=== PATIENT | female | born 1995 | race Caucasian/White ===

== ENCOUNTER → 2017-07-05 10:34 | Outpatient (CLI) | payer BC, SELFPAY ==
[2017-07-05 11:43] LABS: Hematocrit 32.6 % (37-47); Mean Corp Hgb Conc 33.7 g/gl (32-36); Mean Corpuscular Hgb 32.4 pg (27.0-32.0); Mean Corpuscular Volume 96.2 fL (81-99); Mean Platelet Vol. 10.4 fl (6.2-12.0); Platelet Count 192 K/mm3 (150-450); RBC Distribution Width SD 43.5 fl (35.1-43.9); Red Blood Count 3.39 M/mm3 (4.2-5.4); White Blood Count 10.5 K/mm3 (4.4-11.0)
[2017-07-05 11:47] LABS: Scan Indicated on CBC? Y/N NO
[2017-07-05 11:55] LABS: Glucose Challenge Gest 1H 50g 81 mg/dL (70-140)
[2017-07-05 13:28] LABS: ALB/GLOB Ratio 0.7 RATIO (0.9-2.4); AST(SGOT) 16 U/L (15-37); Alanine Aminotransfer ALT/SGPT 20 U/L (13-56); Albumin, Serum 2.9 g/dL (3.2-5.0); Alkaline Phosphatase 55 U/L (45-117); Anion Gap 6 (5-15); BUN 9 mg/dL (7-18); BUN/Creat Ratio 15.5 RATIO (10-20); Calcium,Total 8.4 mg/dL (8.5-10.1); Chloride 106 mmol/L (98-107); Creatinine, Serum 0.58 mg/dL (0.55-1.02); EST Glomerular Filtration Rate 138 mL/min (>60); Est Glom Filt Rate - Afr Amer 167 mL/min (>60); Globulin 3.9 g/dL (2.2-4.2); Potassium 3.4 mmol/L (3.5-5.1); Protein, Total 6.8 g/dL (6.4-8.2); Sodium Level 138 mmol/L (136-145); Uric Acid 2.7 mg/dL (2.6-6.0)
[2017-07-05 13:47] LABS: Protein, Urine (Random) 14.8 mg/dL (<11.9)
== END ==
PROVIDERS: Visit Provider Obstetrics & Gynecology
DX: Z34.83 Encounter for supervision of other normal pregnancy, third trimester (principal)
CPT/HCPCS: 80053; 82570; 82950; 84156; 84550; 85027

== ENCOUNTER → 2017-08-05 10:00 | Outpatient (CLI) | payer BC, SELFPAY ==
--- NOTE | 2017-08-05 10:00 | DT_ITS ---
This patient was seen during an EMR downtime August 05, 2017 - August 12, 2017. This patient may have a combination of paper and electronic documentation or all paper documentation. All documentation is viewable within the e-chart portion of [facility] for each patient visit.
[2017-08-11 02:43] LABS: ALB/GLOB Ratio 0.7 RATIO (0.9-2.4); AST(SGOT) 18 U/L (15-37); Alanine Aminotransfer ALT/SGPT 28 U/L (13-56); Alkaline Phosphatase 84 U/L (45-117); Anion Gap 9 (5-15); BUN 9 mg/dL (7-18); BUN/Creat Ratio 15.8 RATIO (10-20); Calcium,Total 8.3 mg/dL (8.5-10.1); Chloride 106 mmol/L (98-107); Creatinine, Serum 0.57 mg/dL (0.55-1.02); EST Glomerular Filtration Rate 142 mL/min (>60); Est Glom Filt Rate - Afr Amer 172 mL/min (>60); Globulin 4.2 g/dL (2.2-4.2); Glucose 77 mg/dL (74-106); Potassium 3.8 mmol/L (3.5-5.1); Protein, Total 7.2 g/dL (6.4-8.2); Sodium Level 138 mmol/L (136-145); Uric Acid 3.5 mg/dL (2.6-6.0)
[2017-08-11 02:44] LABS: Protein, Urine (Random) 16.9 mg/dL (<11.9)
[2017-08-11 02:52] LABS: Hematocrit 35.3 % (37-47); Hemoglobin 11.7 g/dl (12.0-15.0); Mean Corp Hgb Conc 33.1 g/gl (32-36); Mean Corpuscular Hgb 31.7 pg (27.0-32.0); Mean Corpuscular Volume 95.7 fL (81-99); Platelet Count 214 K/mm3 (150-450); RBC Distribution Width CV 12.5 % (11.6-14.6); RBC Distribution Width SD 42.2 fl (35.1-43.9); Red Blood Count 3.69 M/mm3 (4.2-5.4); White Blood Count 10.1 K/mm3 (4.4-11.0)
[2017-08-11 02:53] LABS: Scan Indicated on CBC? Y/N NO
== END ==
PROVIDERS: Visit Provider Obstetrics & Gynecology
DX: O13.3 Gestational [pregnancy-induced] hypertension without significant proteinuria, third trimester (principal); Z3A.00 Weeks of gestation of pregnancy not specified
CPT/HCPCS: 36415; 80053; 82570; 84156; 84550; 85027

== ENCOUNTER → 2017-08-22 11:41 | Outpatient (CLI) | payer BC, SELFPAY ==
[2017-08-22 12:44] LABS: Hemoglobin 11.1 g/dl (12.0-15.0); Mean Corp Hgb Conc 33.6 g/gl (32-36); Mean Corpuscular Hgb 31.5 pg (27.0-32.0); Mean Corpuscular Volume 93.8 fL (81-99); Mean Platelet Vol. 10.7 fl (6.2-12.0); Platelet Count 209 K/mm3 (150-450); RBC Distribution Width SD 39.9 fl (35.1-43.9); Red Blood Count 3.52 M/mm3 (4.2-5.4); White Blood Count 8.6 K/mm3 (4.4-11.0)
[2017-08-22 12:49] LABS: Scan Indicated on CBC? Y/N NO
[2017-08-22 13:10] LABS: ALB/GLOB Ratio 0.6 RATIO (0.9-2.4); AST(SGOT) 16 U/L (15-37); Alanine Aminotransfer ALT/SGPT 23 U/L (13-56); Albumin, Serum 2.7 g/dL (3.2-5.0); Alkaline Phosphatase 78 U/L (45-117); Anion Gap 8 (5-15); BUN 10 mg/dL (7-18); BUN/Creat Ratio 17.2 RATIO (10-20); Calcium,Total 8.4 mg/dL (8.5-10.1); Chloride 109 mmol/L (98-107); Creatinine, Serum 0.58 mg/dL (0.55-1.02); EST Glomerular Filtration Rate 137 mL/min (>60); Est Glom Filt Rate - Afr Amer 166 mL/min (>60); Globulin 4.3 g/dL (2.2-4.2); Glucose 86 mg/dL (74-106); Potassium 3.5 mmol/L (3.5-5.1); Protein, Urine (Random) 9.6 mg/dL (<11.9); Sodium Level 138 mmol/L (136-145); Uric Acid 3.4 mg/dL (2.6-6.0)
== END ==
PROVIDERS: Visit Provider Obstetrics & Gynecology
DX: O13.3 Gestational [pregnancy-induced] hypertension without significant proteinuria, third trimester (principal); Z3A.00 Weeks of gestation of pregnancy not specified
CPT/HCPCS: 36415; 80053; 82570; 84156; 84550; 85027

== ENCOUNTER → 2017-08-26 13:24 | Outpatient (CLI) | payer BC, SELFPAY ==
[2017-08-26 15:33] LABS: Group B Strep DNA By PCR Negative (Negative); Internal Control PASS; Probe Check PASS; Specimen Processing Control PASS
== END ==
PROVIDERS: Visit Provider Obstetrics & Gynecology
DX: Z36.85 Encounter for antenatal screening for Streptococcus B (principal)
CPT/HCPCS: 87081; 87653

== ENCOUNTER 2017-09-08 06:30 | Inpatient (IN) | payer BC, SELFPAY ==
[2017-09-08] VITALS (21 sets, daily range): BP systolic 99–154; BP diastolic 42–97; PULSE 79–129; RESP 11–20; TEMP 35.7–37.3; O2SAT 97–100; BMI 33.2
[2017-09-08] MEDS: 0.9% Saline Lock 10 ML Syringe IV ×4 (07:35→21:15)
[2017-09-08 07:52] LABS: Hematocrit 31.6 % (37-47); Hemoglobin 10.4 g/dl (12.0-15.0); Mean Corp Hgb Conc 32.9 g/gl (32-36); Mean Corpuscular Hgb 30.6 pg (27.0-32.0); Mean Corpuscular Volume 92.9 fL (81-99); Mean Platelet Vol. 10.5 fl (6.2-12.0); Platelet Count 202 K/mm3 (150-450); RBC Distribution Width CV 12.5 % (11.6-14.6); RBC Distribution Width SD 42.5 fl (35.1-43.9)
[2017-09-08 07:53] LABS: Scan Indicated on CBC? Y/N NO
[2017-09-08] MEDS: Lactated Ringers 1,000 ML 50 ML IV ×2 (09:13→11:15)
[2017-09-08] MEDS: Terbutaline 1 MG/ML Vial 0.25 MG SC (10:00)
--- NOTE | 2017-09-08 10:22 | PCM.OPRPT ---
Problem List (1) Breech presentation Status: Acute Qualifiers: Fetus number: single or unspecified fetus Qualified Code(s): O32.1XX0 - Maternal care for breech presentation, not applicable or unspecified (2) 37 weeks gestation of Status: Acute Report of Operation Date of Procedure: 09/08/17 Pre-Operative Diagnosis: 37 4/7wga, breech presentation, gestational HTN Surgery/Procedure Performed:: 37 4/7wga, breech presentation, gestational hypertension Description of Surgical Findings:: heart rate baseline 135 bpm US demonstrates - Fetus camilo breech with back maternal left, anterior placenta, SINCERE 13cm drugless doctor: Belinda Albert Special Medications: Terbutaline 0.25mg Specimen's removed: none Estimated Blood Loss (mL): 0 Description of Procedure: Procedure: External cephalic version. Reviewed with patient risks, benefits and alternatives and she desired to proceed. NST was obtained and Category I. SC Terbutaline was administered. US performed to verify lie and presentation. US was employed intermittently to verify presentation/lie and view the placenta. A backward roll was attempted, followed by two forward roll attempts without successful version. heart rate obtained intermittently remained within normal limits without decelerations and the placenta appeared normal on post procedural US. The patient declined a final attempt at backwards roll. The patient tolerated the procedure well. Will obtain NST and observer FHR for additional 60 min. - Complications none
--- NOTE | 2017-09-08 10:30 | OP.PCM_ITS ---
Problem List (1) Breech presentation Status: Acute Qualifiers: Fetus number: single or unspecified fetus Qualified Code(s): O32.1XX0 - Maternal care for breech presentation, not applicable or unspecified (2) 37 weeks gestation of Status: Acute Report of Operation Date of Procedure: 09/08/17 Pre-Operative Diagnosis: 37 4/7wga, breech presentation, gestational HTN Surgery/Procedure Performed:: 37 4/7wga, breech presentation, gestational hypertension Description of Surgical Findings:: heart rate baseline 135 bpm US demonstrates - Fetus camilo breech with back maternal left, anterior placenta , SINCERE 13cm veneer glue jointer feedback: Belinda Albert Special Medications: Terbutaline 0.25mg Specimen's removed: none Estimated Blood Loss (mL): 0 Description of Procedure: Procedure: External cephalic version. Reviewed with patient risks, benefits and alternatives and she desired to proceed. NST was obtained and Category I. SC Terbutaline was administered. US performed to verify lie and presentation. US was employed intermittently to verify presentation/lie and view the placenta. A backward roll was attempted, followed by two forward roll attempts without successful version. heart rate obtained intermittently remained within normal limits without decelerations and the placenta appeared normal on post procedural US. The patient declined a final attempt at backwards roll. The patient tolerated the procedure well. Will obtain NST and observer FHR for additional 60 min. - Complications none
--- NOTE | 2017-09-08 10:44 | HP.PCM_ITS ---
- Problem List (1) Breech presentation Status: Acute Qualifiers: Fetus number: single or unspecified fetus Qualified Code(s): O32.1XX0 - Maternal care for breech presentation, not applicable or unspecified (2) 37 weeks gestation of Status: Acute (3) Gestational hypertension Status: Acute History Date of Admission: 09/08/17 Final YOHAN: 09/25/17 Final YOHAN Source: US <20 weeks Gestational age: 37 Weeks and 4 Days History of this : This is a 21 year-old, G 1, P 0, at 37 weeks 4 days gestational age presented for scheduled induction of labor for gestational hypertension. Denies headache, vision changes, abdominal pain, contractions, leaking of fluid or vaginal bleeding. Fetus is active. Medical History: Medical History (Last Updated 09/08/17 @ 10:33 by Patricia Gray MD) Patient denies medical problems Z78.9 Allergies ibuprofen [From Motrin] Allergy (Verified 09/08/17 08:11) Rash Home Medications: Home Medications Vit No.130/Iron/FA [ Vitamins] 1 each PO DAILY 09/08/17 Smoking Status: Never smoker Alcohol: None Number of Fetus(es): 1 Heart Tracin, moderate variability, + accelerations, no decelerations TOCO Analysis: irritability with contractions 0-1/10 min History Past Pregnancies: Past Pregnancies Delivery Date Name GA/Weeks Outcome Route Weight Infant Gender Labor Length Anesthesia Delivery Location Provider FOB Labs: A positive, Ab negative GBS neg 1h GTT 81mg/dL RPR nr HIV nonreactive Hep C Ab negative Hep B S Ag negative Rubella nonimmune Utox negative TSH 0.35 uIU/mL PAP 02/12/17 - NILM GC/CT 02/12/17 - negative/negative Describe any other labor & delivery plans:: External cephalic version Number of Visits: 12 Review of Systems Constitutional: Denies: Anorexia Cardiovascular: Denies: Chest Pain, Edema Respiratory: Denies: Shortness of Breath Gastrointestinal: Denies: Abdominal Pain, Nausea, Vomiting Gynecological: Denies: Vaginal bleeding Neurological: Denies: Blurred vision, Double vision, Headaches Physical Exam Vitals: AVSS, BP 130s/80s General: Alert, Oriented x3, Cooperative, No apparent distress HEENT: Atraumatic, Normocephalic Cardiovascular: Regular rate, Regular Rhythm, Normal S1, Normal S2, No murmurs Lungs: Clear to auscultation, Normal air movement, No rhonchi, No wheeze, No rales Abdomen: Soft, Non Tender, Non-Distended, Gravid Extremities:: No edema, Normal pulses, No tenderness/swelling Neurological: Neuro grossly intact, - - Trace b/l DTRs, no clonus COMMERCIAL SHEET METAL FOREMAN: Normal external genitalia Estimated gestational size: Appropriate for gestational size Presentation: Breech Cervix Dilation (cm): 1 Station: -3 Effacement (%): 25 Assessment/Plan All Active Problems (Last Updated 09/08/17 @ 10:33 by Patricia Gray MD) Breech presentation (Acute) 37 weeks gestation of (Acute) Gestational hypertension (Acute) This is a 21 year-old, G 1, P 0, at 37 weeks 4 days gestational age. -Bedside US performed - fetus breech with SINCERE 13cm. IOL deferred. -Discussed with patient and findings and advised against vaginal delivery due to risk for head entrapment. Reviewed management options including ECV with review of risks including heart rate changes including distress, placental abruption, labor, rupture of members with potential subsequent cord prolapse, need for emergency section due to a number of theses complications. Discussed potential for failure and success rate. Reviewed section indications, risks including pain, bleeding, hemorrhage, infection, VTE, nerve injury, injury to bowel or bladder, need for repeat section versus potential for future vaginal delivery with increased risk for uterine rupture, placenta accreta in future . Reviewed anticipated hospitalization and post-operative course. -Patient and given opportunity to discuss options further and opted for ECV. See procedure note. -NPO in interim -LARC declined
[2017-09-08] MEDS: Sodium Citrate/Citric Acid 30 ML UDC PO (12:11)
[2017-09-08] MEDS: Cefazolin 2 GM in 0.9% Normal Saline 100 ML IV (12:24)
[2017-09-08] MEDS: Oxytocin 30 units/NS 500 ml 30 UNITS/500 ML IV.SOLN 167 UNITS IV (12:48)
--- NOTE | 2017-09-08 13:25 | PCM.IMED.CSR ---
- Problem List (1) Breech presentation Status: Acute Qualifiers: Fetus number: single or unspecified fetus Qualified Code(s): O32.1XX0 - Maternal care for breech presentation, not applicable or unspecified (2) 37 weeks gestation of Status: Acute (3) Gestational hypertension Status: Acute Qualifiers: Trimester: third trimester Qualified Code(s): O13.3 - Gestational [-induced] hypertension without significant proteinuria, third trimester [id number] PostOp Date of Procedure: 09/08/17 Primary Surgeon/Physician: Patricia Gray, instrument technician helper: Sascha Dailey Pre-op Diagnosis: Breech Post-Op Diagnosis: Breech Surgery/Procedure Performed: Primary low transverse Section Description of Surgical Findings:: Normal uterus, tubes and ovaries Estimated Blood Loss: 1000 mL Specimens Removed: placenta Drain: Diana to straight drain Type of Anesthesia: Spinal - Admit VTE Documentation VTE Present on Admission: No VTE Mechan Device Prophylaxis: SCD's VTE Pharm Prophylaxis ordered?: No
--- NOTE | 2017-09-08 13:28 | OP.PN_ITS ---
- Problem List (1) Breech presentation Status: Acute Qualifiers: Fetus number: single or unspecified fetus Qualified Code(s): O32.1XX0 - Maternal care for breech presentation, not applicable or unspecified (2) 37 weeks gestation of Status: Acute (3) Gestational hypertension Status: Acute Qualifiers: Trimester: third trimester Qualified Code(s): O13.3 - Gestational [ -induced] hypertension without significant proteinuria, third trimester [id number] PostOp Date of Procedure: 09/08/17 Primary Surgeon/Physician: Patricia Gray, director of outpatient services: Sascha Dailey Pre-op Diagnosis: Breech Post-Op Diagnosis: Breech Surgery/Procedure Performed: Primary low transverse Section Description of Surgical Findings:: Normal uterus, tubes and ovaries Estimated Blood Loss: 1000 mL Specimens Removed: placenta Drain: Diana to straight drain Type of Anesthesia: Spinal - Admit VTE Documentation VTE Present on Admission: No VTE Mechan Device Prophylaxis: SCD's VTE Pharm Prophylaxis ordered?: No
--- NOTE | 2017-09-08 13:34 | PCM.OB.CSR ---
- Problem List (1) Breech presentation Status: Acute Qualifiers: Fetus number: single or unspecified fetus Qualified Code(s): O32.1XX0 - Maternal care for breech presentation, not applicable or unspecified (2) 37 weeks gestation of Status: Acute (3) Gestational hypertension Status: Acute Qualifiers: Trimester: third trimester Qualified Code(s): O13.3 - Gestational [-induced] hypertension without significant proteinuria, third trimester Delivery Classification: Scheduled Final YOHAN: 09/25/17 Gestational age: 37 Weeks and 4 Days doctor who attended delivery (if requested by OB): Daron Julian Indications: 21-year-old 1 at 37-4/7 weeks gestational age with history of gestational hypertension presents for scheduled induction of labor, however was found to have breech presentation on arrival. She opted for attempted external cephalic version following counseling. Version attempt was unsuccessful. I advised section. Risks, benefits, indications and alternatives to section were reviewed at length. Patient desired to proceed. Indications for : Breech Description of Procedure: Normal uterus, tubes and ovaries Female , 3321 g IV fluids 700 mL Urine output 300 mL Procedure: The patient was taken to the operating room and spinal analgesia was administered. She is placed in a dorsal supine position with left lateral tilt. The perineum and abdomen were prepped and draped in sterile fashion. And the spinal was found to be adequate. A Pfannenstiel incision was made using a scalpel and brought down to incise the subcutaneous tissue and rectus fascia at the midline. Subcutaneous tissue was bluntly dissected off the fascia laterally. The fascial incision was dissected laterally and cephalad using curved Hoskins scissors. The superior leaflet of the rectus fascia was grasped using Elia clamps and bluntly dissected and sharply dissected from the underlying rectus muscle. In a similar fashion the inferior rectus fascia was dissected from the underlying muscle. The rectus muscles were bluntly at the midline. The peritoneum was identified and entered [sharply]. The bladder blade was placed into the abdomen and the vesicouterine peritoneal fold identified. The fold was incised and a bladder flap created. Bladder blade was then repositioned to the abdomen. A low transverse hysterotomy was made using the [Metzenbaum scissors] to level of the membranes. The hysterotomy was extended bluntly cephalad and caudad. The membranes were then ruptured revealing clear fluid. The breech was elevated and brought to the level of the hysterotomy. Gentle bidirectional rotation the infant legs and upper extremities delivered. The head was flexed and subsequently delivered revealing a female infant. The cord was doubly clamped and cut. The was passed to awaiting [nursery personnel and model and dye person]. The placenta was [expressed] from the uterus and appeared intact on inspection. The uterus was cleared of debris. The hysterotomy was then repaired using 0 Vicryl running lock suture. A second imbricating layer was also placed for additional hemostasis. The bladder blade was removed. The anterior cul-de-sac was cleared of debris. The peritoneum and rectus muscles were reapproximated using 2-0 Vicryl running suture. The rectus fascia was closed using 0 Vicryl running suture. The subcutaneous tissue was reapproximated using 2-0 Vicryl. The skin was closed using 4-0 Monocryl subcuticularly by the CUSTOMER GREETER under my supervision. Indu was applied and a Mepilex occlusive dressing was placed over the incision. The fundus was firm. The patient was then transferred to the recovery room without complication. Sponge, instrument, and needle counts were correct ?2. The patient tolerated the procedure well Amniotic Membrane Rupture Type: Artificial Amniotic Fluid Description: Clear Placenta Disposition: [facility] Specimen(s) sent to pathology: placenta Drain: Diana to straight drain Cord Entanglement: - - Around neck x 2 - 1 loose and 1 tight Nuchal Cord Compression: With compression Cord Vessel Description: 3 Vessels Esitmated Blood Loss (ml): 1000 Infant Gender: Female (1 minute): 5 (5 minute): 9 Delayed cord clamping: No Pre-op Antibiotic Given: Ancef 2 grams IV x1 Pt instructed on risks of surgery: Bleeding, Anesthesia Risks, Infection, Need for Future C-Sections, Injury to surrounding structure(s) including bowel and bladder Complications: None - Admit VTE Documentation VTE Present on Admission: No VTE Mechan Device Prophylaxis: SCD's VTE Pharm Prophylaxis ordered?: No
--- NOTE | 2017-09-08 13:43 | OP.PCM_ITS ---
- Problem List (1) Breech presentation Status: Acute Qualifiers: Fetus number: single or unspecified fetus Qualified Code(s): O32.1XX0 - Maternal care for breech presentation, not applicable or unspecified (2) 37 weeks gestation of Status: Acute (3) Gestational hypertension Status: Acute Qualifiers: Trimester: third trimester Qualified Code(s): O13.3 - Gestational [ -induced] hypertension without significant proteinuria, third trimester Delivery Classification: Scheduled Final YOHAN: 09/25/17 Gestational age: 37 Weeks and 4 Days [place] doctor who attended delivery (if requested by OB): Daron Julian Indications: 21-year-old 1 at 37-4/7 weeks gestational age with history of gestational hypertension presents for scheduled induction of labor, however was found to have breech presentation on arrival. She opted for attempted external cephalic version following counseling. Version attempt was unsuccessful. I advised section. Risks, benefits, indications and alternatives to section were reviewed at length. Patient desired to proceed. Indications for : Breech Description of Procedure: Normal uterus, tubes and ovaries Female infant, 3321 g IV fluids 700 mL Urine output 300 mL Procedure: The patient was taken to the operating room and spinal analgesia was administered. She is placed in a dorsal supine position with left lateral tilt. The perineum and abdomen were prepped and draped in sterile fashion. And the spinal was found to be adequate. A Pfannenstiel incision was made using a scalpel and brought down to incise the subcutaneous tissue and rectus fascia at the midline. Subcutaneous tissue was bluntly dissected off the fascia laterally. The fascial incision was dissected laterally and cephalad using curved Hoskins scissors. The superior leaflet of the rectus fascia was grasped using Elia clamps and bluntly dissected and sharply dissected from the underlying rectus muscle. In a similar fashion the inferior rectus fascia was dissected from the underlying muscle. The rectus muscles were bluntly at the midline. The peritoneum was identified and entered [sharply]. The bladder blade was placed into the abdomen and the vesicouterine peritoneal fold identified. The fold was incised and a bladder flap created. Bladder blade was then repositioned to the abdomen. A low transverse hysterotomy was made using the [Metzenbaum scissors] to level of the membranes. The hysterotomy was extended bluntly cephalad and caudad. The membranes were then ruptured revealing clear fluid. The breech was elevated and brought to the level of the hysterotomy. Gentle bidirectional rotation the infant legs and upper extremities delivered. The head was flexed and subsequently delivered revealing a female infant. The cord was doubly clamped and cut. The was passed to awaiting [nursery personnel and audit machine operator]. The placenta was [expressed] from the uterus and appeared intact on inspection. The uterus was cleared of debris. The hysterotomy was then repaired using 0 Vicryl running lock suture. A second imbricating layer was also placed for additional hemostasis. The bladder blade was removed. The anterior cul-de-sac was cleared of debris. The peritoneum and rectus muscles were reapproximated using 2-0 Vicryl running suture. The rectus fascia was closed using 0 Vicryl running suture. The subcutaneous tissue was reapproximated using 2-0 Vicryl. The skin was closed using 4-0 Monocryl subcuticularly by the [employer]OTH [employer] WORKER [employer]POSITES under my supervision. [place] was applied and a Mepilex occlusive dressing was placed over the incision. The fundus was firm. The patient was then transferred to the recovery room without complication. Sponge, instrument, and needle counts were correct ?2. The patient tolerated the procedure well Amniotic Membrane Rupture Type: Artificial Amniotic Fluid Description: Clear Placenta Disposition: [facility] Specimen(s) sent to pathology: placenta Drain: Diana to straight drain Cord Entanglement: - - Around neck x 2 - 1 loose and 1 tight Nuchal Cord Compression: With compression Cord Vessel Description: 3 Vessels Esitmated Blood Loss (ml): 1000 Infant Gender: Female (1 minute): 5 (5 minute): 9 Delayed cord clamping: No Pre-op Antibiotic Given: Ancef 2 grams IV x1 Pt instructed on risks of surgery: Bleeding, Anesthesia Risks, Infection, Need for Future C-Sections, Injury to surrounding structure(s) including bowel and bladder Complications: None - Admit VTE Documentation VTE Present on Admission: No VTE Mechan Device Prophylaxis: SCD's VTE Pharm Prophylaxis ordered?: No
[2017-09-08] MEDS: Methylergonovine 0.2 MG/ML Ampul IM (14:21)
[2017-09-08] MEDS: Carboprost Tromethamine 250 MCG/ML Ampul IM (14:29)
[2017-09-08 14:54] LABS: Absolute Lymphocyte Count 1.91 X10^3/ul (0.83-4.51); Absolute Neutrophil Count 12.1 X10^3/uL (2.0-7.7); Basophil# 0.01 X10^3/uL; Basophil% 0.1 % (0-1); Eosinophil# 0.01 X10^3/uL; Eosinophils% 0.1 % (0-5); Hematocrit 31.5 % (37-47); Hemoglobin 10.4 g/dl (12.0-15.0); Lymphocyte # 1.91 X10^3/ul (4.0); Lymphocyte % 12.7 % (19-41); Mean Corpuscular Hgb 31.2 pg (27.0-32.0); Mean Corpuscular Volume 94.6 fL (81-99); Mean Platelet Vol. 10.8 fl (6.2-12.0); Monocyte# 0.93 X10^3/uL; Monocyte% 6.2 % (0-10); Neutrophil # 12.06 X10^3/uL (2.7-7.7); Neutrophil % 80.4 % (47-70); Platelet Count 222 K/mm3 (150-450); RBC Distribution Width CV 12.2 % (11.6-14.6); RBC Distribution Width SD 40.6 fl (35.1-43.9); Red Blood Count 3.33 M/mm3 (4.2-5.4)
[2017-09-08 14:55] LABS: POSITIVE COUNT NO; POSITIVE DIFFERENTIAL NO; POSITIVE MORPHOLOGY NO
[2017-09-08 15:01] LABS: Partial Thromboplast Time 24.7 Seconds (24.1-36.2)
--- NOTE | 2017-09-08 15:12 | PCM.PN.BLA ---
Progress Note SUMMARY OF EVENTS Called in to evaluate patient for hemorrhage following section, methergine had been given. On my arrival patient reported feeling unwell. She was alert and oriented to person, place and time. HR 117 bpm with normal BP 120s/60s. RN informed me there was approximately 1900mL blood loss by weight prior to my arrival. The uterus was well contracted at u-3 with firm fundal tone. An intrauterine exam was performed with retrieval of approximately 150cc of blood with clot by my estimate. No evidence of vaginal laceration. IV bolus NS was started and pitocin IV continued. US performed with no Doppler flow to endometrium and thin lining. No gross defects appreciated on US. I placed a Bakri balloon with total of 360mL NS under US guidance confirming adequate placement and again the uterus appeared to be intact. Give hemabate for continued hemostasis and IV Cefazolin given EBL and intrauterine exams. Total EBL 2283mL, not including 1000 mL for section. I advised blood transfusion given starting Hct 31.6. Reviewed transfusion related risk and potential for infection exposure and transmission. Patient agreeable. Will administer 2 U PRBC to start. Heart rate had improved to 90s bpm with IV bolus. Will continue Methergine series.
[2017-09-08 15:17] LABS: Fibrinogen 394 mg/dl (203-444); Prothrombin Time (Protime)PT. 13.2 SECONDS (11.7-14.9)
--- NOTE | 2017-09-08 15:33 | NURSING ---
LESS THAN 100CC IN TAMPONADE DRAINAGE BAG.
--- NOTE | 2017-09-08 16:09 | NURSING ---
GIVEN PER MARKET ASSET PROTECTION MANAGER VIA RAPID INFUSER
--- NOTE | 2017-09-08 16:10 | NURSING ---
GIVEN PER MECHANICAL DESIGN ENGINEER VIA RAPID INFUSER
--- NOTE | 2017-09-08 16:59 | NURSING ---
1419- Large amount of bright red lochia with clots noted vigorous fundal massage given . More clots expelled after massage. 1420. C Erin HIGHTOWER, charge nurse called to room. See hemorrhage checklist documentation.
--- NOTE | 2017-09-08 17:18 | NURSING ---
VS documented for 1610 in error, VS taken at 1710.
[2017-09-08] MEDS: Cefazolin 1 GM/50 ML BAG IV (20:28)
[2017-09-08] MEDS: Lactated Ringers 1,000 ML 15 ML IV (20:28)
--- NOTE | 2017-09-08 21:36 | NURSING ---
@ 1930 with fundal check tamponade balloon in place and draining well
--- NOTE | 2017-09-08 21:37 | NURSING ---
@ 0720 with fundal check tamponade balloon in place and draining well
[2017-09-09] VITALS (12 sets, daily range): BP systolic 116–138; BP diastolic 57–96; PULSE 77–96; RESP 16–20; TEMP 36.5–37.4; O2SAT 96–100
[2017-09-09 00:18] LABS: Absolute Lymphocyte Count 1.72 X10^3/ul (0.83-4.51); Absolute Neutrophil Count 15.7 X10^3/uL (2.0-7.7); Basophil# 0.03 X10^3/uL; Basophil% 0.2 % (0-1); Eosinophil# 0.02 X10^3/uL; Eosinophils% 0.1 % (0-5); Hematocrit 30.5 % (37-47); Hemoglobin 10.6 g/dl (12.0-15.0); Lymphocyte # 1.72 X10^3/ul (4.0); Lymphocyte % 9.2 % (19-41); Mean Corp Hgb Conc 34.8 g/gl (32-36); Mean Corpuscular Hgb 30.8 pg (27.0-32.0); Mean Corpuscular Volume 88.7 fL (81-99); Mean Platelet Vol. 10.6 fl (6.2-12.0); Monocyte# 1.26 X10^3/uL; Monocyte% 6.7 % (0-10); Neutrophil # 15.69 X10^3/uL (2.7-7.7); Neutrophil % 83.5 % (47-70); Platelet Count 153 K/mm3 (150-450); RBC Distribution Width CV 14.8 % (11.6-14.6); RBC Distribution Width SD 46.5 fl (35.1-43.9); Red Blood Count 3.44 M/mm3 (4.2-5.4); White Blood Count 18.8 K/mm3 (4.4-11.0)
[2017-09-09 00:22] LABS: POSITIVE COUNT NO; POSITIVE DIFFERENTIAL NO; POSITIVE MORPHOLOGY NO
[2017-09-09 00:38] LABS: Fibrinogen 324 mg/dl (203-444); Prothrombin Time (Protime)PT. 13.5 SECONDS (11.7-14.9)
[2017-09-09] MEDS: Cefazolin 1 GM/50 ML BAG IV (04:24)
[2017-09-09] MEDS: 0.9% Saline Lock 10 ML Syringe IV ×2 (04:25→05:15)
--- NOTE | 2017-09-09 04:43 | NURSING ---
@ 0130 with fundal check tamponade in place and draining well
--- NOTE | 2017-09-09 04:43 | NURSING ---
@ 0430 with fundal check tamponade in place and draining well
[2017-09-09 06:35] LABS: Hematocrit 30.4 % (37-47); Hemoglobin 10.4 g/dl (12.0-15.0); Mean Corp Hgb Conc 34.2 g/gl (32-36); Mean Corpuscular Hgb 30.2 pg (27.0-32.0); Mean Corpuscular Volume 88.4 fL (81-99); Mean Platelet Vol. 10.1 fl (6.2-12.0); Platelet Count 141 K/mm3 (150-450); RBC Distribution Width CV 15.3 % (11.6-14.6); RBC Distribution Width SD 49.1 fl (35.1-43.9); Red Blood Count 3.44 M/mm3 (4.2-5.4); White Blood Count 17.7 K/mm3 (4.4-11.0)
[2017-09-09 07:01] LABS: Scan Indicated on CBC? Y/N NO
--- NOTE | 2017-09-09 08:00 | PCM.PN.OB ---
Patient Problems: Active and Suspected Problems (Last Updated 09/08/17 @ 10:33 by Patricia Gray MD) Breech presentation (Acute) 37 weeks gestation of (Acute) Gestational hypertension (Acute) Subjective: Denies headache, vision changes, lightheadedness. + fatigue. Not yet out of bed. Infant, Liliam, is nursing well. Objective: AVSS - Physical Exam General: Alert, Cooperative, No apparent distress HEENT: Atraumatic, Normocephalic Lungs: Clear to auscultation, Normal air movement Cardiovascular: Regular rate, Regular Rhythm, Normal S1, Normal S2 Abdomen: Bowel Sounds Present, Soft, Non Tender, Non-Distended, - - Fundus firm and nontender, incisional dressing c/d/i, lochia scant - Bakri bag with < 10cc in bag Vital Signs Temp Pulse Resp BP Pulse Ox 98.9 F 92 20 H 131/96 H 98 09/09/17 07:00 09/09/17 07:00 09/09/17 07:00 09/09/17 07:00 09/09/17 07:00 Oxygen Delivery Method Room Air Weight: 102.1 kg Body Mass Index (BMI) 33.2 Intake and Output for Last 24 Hours 09/07/17 09/08/17 09/09/17 23:59 23:59 23:59 Intake Total 7655 / 7655 1560 / 1560 Output Total 2250 / 2250 1635 / 1635 Balance 5405 / 5405 -75 / -75 Laboratory Tests Past 24 Hrs 09/08/17 09/08/17 09/08/17 07:35 07:35 14:40 WBC 15.0 H RBC 3.33 L Hgb 10.4 L Hct 31.5 L MCV 94.6 MCH 31.2 MCHC 33.0 RDW 12.2 RDW Differential 40.6 Plt Count 222 MPV 10.8 Immature Gran % (Auto) 0.500 Neut % (Auto) 80.4 H Lymph % (Auto) 12.7 L [place] % (Auto) 6.2 Eos % (Auto) 0.1 Baso % (Auto) 0.1 Absolute Neuts (auto) 12.1 H Absolute Lymphs (auto) 1.91 Total Counted Not Reportable PT INR APTT Fibrinogen Blood Type A POSITIVE Antibody Screen NEGATIVE Crossmatch See Detail 09/08/17 09/09/17 09/09/17 14:40 00:10 00:10 WBC 18.8 H RBC 3.44 L Hgb 10.6 L Hct 30.5 L MCV 88.7 MCH 30.8 MCHC 34.8 RDW 14.8 H RDW Differential 46.5 H Plt Count 153 MPV 10.6 Immature Gran % (Auto) 0.300 Neut % (Auto) 83.5 H Lymph % (Auto) 9.2 L [place] % (Auto) 6.7 Eos % (Auto) 0.1 Baso % (Auto) 0.2 Absolute Neuts (auto) 15.7 H Absolute Lymphs (auto) 1.72 Total Counted Not Reportable PT 13.2 13.5 INR 1.0 1.0 APTT 24.7 Fibrinogen 394 324 Blood Type Antibody Screen Crossmatch 09/09/17 05:40 WBC 17.7 H RBC 3.44 L Hgb 10.4 L Hct 30.4 L MCV 88.4 MCH 30.2 MCHC 34.2 RDW 15.3 H RDW Differential 49.1 H Plt Count 141 L MPV 10.1 Immature Gran % (Auto) Neut % (Auto) Lymph % (Auto) [place] % (Auto) Eos % (Auto) Baso % (Auto) Absolute Neuts (auto) Absolute Lymphs (auto) Total Counted PT INR APTT Fibrinogen Blood Type Antibody Screen Crossmatch Medical Necessity - Tobacco Use Smoking Status: Never smoker Assessment/Plan All Active Problems (Last Updated 09/08/17 @ 10:33 by Patricia Gray MD) Breech presentation (Acute) 37 weeks gestation of (Acute) Gestational hypertension (Acute) This is a 21 year-old, G 1, P1001 PPD#1 h/o gHTN, s/p PLTCS for breech complicated by hemorrhage s/p 4U PRBC. -Hemodynamically stable, no sx of anemia apart from fatigue and urine output excellent, Bakri balloon output minimal. -Will d/c rosario -Maintain balloon through this afternoon. -Regular diet - -Rh positive -Rubella non-immune - will plan for MMR prior to discharge.
[2017-09-09] MEDS: oxyCODONE 5 MG Tablet PO ×5 (08:21→23:23)
[2017-09-09] MEDS: Acetaminophen 500 MG Tablet 1000 MG PO (08:22)
--- NOTE | 2017-09-09 12:31 | NURSING ---
ice to perineum for labial swelling, 1200 removed 60 cc of fluid from tamponade balloon, up in chair, tolerating well.
[2017-09-09] MEDS: Prenatal Vits Tablet 1 TABLET PO (13:21)
--- NOTE | 2017-09-09 16:49 | NURSING ---
removed 60 cc fluid from tamponade at 1320, removed 60 cc fluid form tamponade at 1415, up to bathroom and pericare completed after rosario removal 30 cc blood from tamponade drainage bag
[2017-09-09] MEDS: Senna/Docusate Sodium 1 Tablet PO (18:24)
--- NOTE | 2017-09-09 19:04 | NURSING ---
1800 removed additional 120 cc from tamponade balloon and removed device from pt, tolerated well
--- NOTE | 2017-09-09 19:33 | NURSING ---
pt got up to bathroom and voided twice but didn't measure
[2017-09-10 02:40] VITALS: BP 133/83; PULSE 93; RESP 18; TEMP 36.8
[2017-09-10] MEDS: Acetaminophen 500 MG Tablet 1000 MG PO ×2 (03:08→11:59)
[2017-09-10 06:15] LABS: Absolute Lymphocyte Count 1.86 X10^3/ul (0.83-4.51); Absolute Neutrophil Count 11.6 X10^3/uL (2.0-7.7); Basophil# 0.01 X10^3/uL; Basophil% 0.1 % (0-1); Eosinophil# 0.16 X10^3/uL; Eosinophils% 1.1 % (0-5); Hematocrit 27.5 % (37-47); Hemoglobin 9.4 g/dl (12.0-15.0); Lymphocyte # 1.86 X10^3/ul (4.0); Lymphocyte % 12.6 % (19-41); Mean Corp Hgb Conc 34.2 g/gl (32-36); Mean Corpuscular Volume 90.8 fL (81-99); Mean Platelet Vol. 10.3 fl (6.2-12.0); Monocyte# 1.15 X10^3/uL; Monocyte% 7.8 % (0-10); Neutrophil # 11.57 X10^3/uL (2.7-7.7); Neutrophil % 78.1 % (47-70); Platelet Count 161 K/mm3 (150-450); RBC Distribution Width CV 15.2 % (11.6-14.6); RBC Distribution Width SD 49.3 fl (35.1-43.9); Red Blood Count 3.03 M/mm3 (4.2-5.4); White Blood Count 14.8 K/mm3 (4.4-11.0)
[2017-09-10 06:24] LABS: POSITIVE COUNT NO; POSITIVE DIFFERENTIAL NO; POSITIVE MORPHOLOGY NO
[2017-09-10] MEDS: oxyCODONE 5 MG Tablet PO ×2 (07:39→18:30)
[2017-09-10 07:59] VITALS: BP 145/93; PULSE 88; RESP 16; TEMP 36.8; O2SAT 98
[2017-09-10 08:00] VITALS: BP 134/87; BP 140/87
--- NOTE | 2017-09-10 08:05 | NURSING ---
on the floor and advised of pt's bp this am. No new orders
--- NOTE | 2017-09-10 08:26 | PCM.PN.OB ---
Patient Problems: Active and Suspected Problems (Last Updated 09/08/17 @ 10:33 by Patricia Gray MD) Breech presentation (Acute) 37 weeks gestation of (Acute) Gestational hypertension (Acute) Subjective: No issues overnight. She is sore, but pain is manageable. OOB, ambulating and voiding without difficulty. Relates lochia is light. Apart from soreness feels well. Continues nursing. No flatus yet. Tolerates a regular diet. Objective: avss - Physical Exam General: Alert, Oriented x3, Cooperative HEENT: Atraumatic, PERRLA, EOMI, Normocephalic Lungs: Clear to auscultation, Normal air movement Cardiovascular: Regular rate, Regular Rhythm, Normal S1, Normal S2, No murmurs Abdomen: Soft, Non Tender, Non-Distended, Hypoactive Bowel Sounds, - - Fundus firm and nontender, incisional dressing c/d/i Extremities: No edema, No Calf Tenderness Neurological: Neuro grossly intact Psych/Mental Status: Normal Affect, Appropriate, Alert and oriented to time, place, person, mood and affect Vital Signs Temp Pulse Resp BP Pulse Ox 98.3 F 88 16 134/87 H 98 09/10/17 07:59 09/10/17 07:59 09/10/17 07:59 09/10/17 08:00 09/10/17 07:59 Oxygen Delivery Method Room Air Weight: 102.1 kg Body Mass Index (BMI) 33.2 Intake and Output for Last 24 Hours 09/08/17 09/09/17 09/10/17 23:59 23:59 23:59 Intake Total 7655 / 7655 1560 / 1560 Output Total 2250 / 2250 5065 / 5065 Balance 5405 / 5405 -3505 / -3505 Laboratory Tests Past 24 Hrs 09/10/17 06:00 WBC 14.8 H RBC 3.03 L Hgb 9.4 L Hct 27.5 L MCV 90.8 MCH 31.0 MCHC 34.2 RDW 15.2 H RDW Differential 49.3 H Plt Count 161 MPV 10.3 Immature Gran % (Auto) 0.300 Neut % (Auto) 78.1 H Lymph % (Auto) 12.6 L [place] % (Auto) 7.8 Eos % (Auto) 1.1 Baso % (Auto) 0.1 Absolute Neuts (auto) 11.6 H Absolute Lymphs (auto) 1.86 Total Counted Not Reportable Medical Necessity - Tobacco Use Smoking Status: Never smoker Assessment/Plan All Active Problems (Last Updated 09/08/17 @ 10:33 by Patricia Gray MD) Breech presentation (Acute) 37 weeks gestation of (Acute) Gestational hypertension (Acute) This is a 21 year-old, G 1, P1001 PPD#2 h/o gHTN, s/p PLTCS for breech complicated by hemorrhage s/p 4U PRBC. -H/H stable -Routine postop care -
[2017-09-10] MEDS: Prenatal Vits Tablet 1 TABLET PO (11:59)
[2017-09-10 12:00] VITALS: BP 157/93; PULSE 106; RESP 16; TEMP 37.1; O2SAT 99
[2017-09-10 16:07] VITALS: BP 142/86; PULSE 97; RESP 16; TEMP 37.1; O2SAT 97
[2017-09-10 20:05] VITALS: BP 143/81; PULSE 83; RESP 16; TEMP 36.9; O2SAT 98
[2017-09-10] MEDS: Senna/Docusate Sodium 1 Tablet PO (22:02)
[2017-09-11 03:15] VITALS: BP 138/81; PULSE 78; RESP 16; TEMP 36.6
[2017-09-11] MEDS: oxyCODONE 5 MG Tablet PO (03:21)
[2017-09-11 08:00] VITALS: BP 145/96; PULSE 87; RESP 16; TEMP 36.7; O2SAT 96
--- NOTE | 2017-09-11 08:20 | PN.OBGYN_ITS ---
Patient Problems: Active and Suspected Problems (Last Updated 09/08/17 @ 10:33 by Patricia Albert MD) Breech presentation (Acute) 37 weeks gestation of (Acute) Gestational hypertension (Acute) Subjective: Continues to be out of bed. Passing flatus, no bowel movement yet. Denies headache, vision changes, upper abdominal pain. Her incision is sore. Relates her lochia is light. Objective: VSS - Physical Exam General: Alert, Oriented x3, Cooperative, No apparent distress HEENT: Atraumatic Lungs: Clear to auscultation, Normal air movement Cardiovascular: Regular rate, Regular Rhythm, Normal S1, Normal S2 Abdomen: Bowel Sounds Present, Soft, Non Tender, Non-Distended, - - Fundus firm and nontender, incisional dressing c/d/i Extremities: No edema, No Calf Tenderness Neurological: Neuro grossly intact, - - Trace b/l LE DTRs. Psych/Mental Status: Normal Affect, Appropriate, Alert and oriented to time, place, person, mood and affect Vital Signs Temp Pulse Resp BP Pulse Ox 98.0 F 87 16 145/96 H 96 09/11/17 08:00 09/11/17 08:00 09/11/17 08:00 09/11/17 08:00 09/11/17 08:00 Oxygen Delivery Method Room Air Weight: 102.1 kg Body Mass Index (BMI) 33.2 Intake and Output for Last 24 Hours 09/09/17 09/10/17 09/11/17 23:59 23:59 23:59 Intake Total 1560 / 1560 Output Total 5065 / 5065 Balance -3505 / -3505 Medical Necessity - Tobacco Use Smoking Status: Never smoker Assessment/Plan All Active Problems (Last Updated 09/08/17 @ 10:33 by Patricia Gray MD) Breech presentation (Acute) 37 weeks gestation of (Acute) Gestational hypertension (Acute) This is a 21 year-old, G 1, P1001 POD#3 h/o gHTN, s/p PLTCS for breech complicated by hemorrhage s/p 4U PRBC. -BPs persistently elevated, no sx preeclampsia. Will send preeclamptic labs. -If labs wnl, plan for d/c home with f/u for BP and incision check. -Si/sx preeclampsia reviewed
--- NOTE | 2017-09-11 08:20 | PCM.DCCSEC ---
Discharge Diet: No Restrictions Discharge Activity: Return to Normal Activity, May Not Drive - for 2 weeks or while taking narcotic pain meds., May not drive while taking narcotic pain medications., May Shower May resume sexual activity in: 6 weeks Lifting Restrictions: 10 lb Call your doctor if your incision/area has: Continuous Slow Oozing, Sudden Increased Bleeding, Increased Pain/ Swelling, Increased Redness, Foul Smelling Discharge Call your doctor if you observe: Fever of 101 or Higher, Using more than one pad per hour, Shortness of breath, Chest pain, Uncontrolled pain, - - Headaches, vision changes, severe abdominal pain Remove Dressing in (days):: 2 - on Saturday09/13/17 Cleanse incision/area with: Soap & Water Instructions: What Is High Blood Pressure? Additional Instructions: If you experience any of the following, contact your healthcare provider. Bleeding that soaks a pad every hour for 2 hours Fever 100.4 or higher Unrelieved incision or abdominal pain Swelling, redness, discharge or bleeding from your incision or episiotomy site Your incision begins to separate Problems urinating (including inability to urinate or burning while urinating). Visual changes Severe headache Flu-like symptoms Pain or redness in one of both of your breasts Pain, warmth, tenderness or swelling in your legs, especially the calf area Frequent nausea and vomiting Symptoms of depression or anxiety If you experience any of the following, call 911 or go to the nearest Emergency Room. Chest pain Problems breathing Seizure activity Partial or complete paralysis of a body part, slurred speech, weakness or drooping of the face, or a sudden inability to walk or hold your balance Please take your blood pressure at home every other day and record. Bring your blood pressure log with you to your next doctor's visit. Call the office with any blood pressures greater than or equal to 150/100 (either number). Allergies/Adverse Reactions: Allergies ibuprofen [From Motrin] Allergy (Verified 09/08/17 08:11) Rash Medications to take at Discharge Vit No.130/Iron/FA [ Tablet] 1 each PO DAILY 09/08/17 Docusate Sodium [Colace] 100 mg PO BID PRN PRN #60 cap 09/11/17 Oxycodone [Oxyir] 1 - 2 tab PO Q4H PRN PRN 3 Days #28 tablet 09/11/17 The following prescriptions were given: Oxycodone [Oxyir] 1 - 2 tab PO Q4H PRN PRN 3 Days #28 tablet PRN Reason: Pain Docusate Sodium [Colace] 100 mg PO BID PRN PRN #60 cap PRN Reason: Constipation Follow-Up: Call to make an appointment with your doctor for an incision check in 1-2 weeks. You will also need a 6 week post- follow up appointment. Test results from this visit will be discussed in further detail at your follow-up appointment, if applicable. Please Follow Up With: Patricia Gray MD When: 7-10 days Primary Care Physician: Care Physician,No Primary [Primary Care Provider] -
--- NOTE | 2017-09-11 08:26 | DCINST_ITS ---
Discharge Diet: No Restrictions Discharge Activity: Return to Normal Activity, May Not Drive - for 2 weeks or while taking narcotic pain meds., May not drive while taking narcotic pain medications., May Shower May resume sexual activity in: 6 weeks Lifting Restrictions: 10 lb Call your doctor if your incision/area has: Continuous Slow Oozing, Sudden Increased Bleeding, Increased Pain/ Swelling, Increased Redness, Foul Smelling Discharge Call your doctor if you observe: Fever of 101 or Higher, Using more than one pad per hour, Shortness of breath, Chest pain, Uncontrolled pain, - - Headaches , vision changes, severe abdominal pain Remove Dressing in (days):: 2 - on Saturday09/13/17 Cleanse incision/area with: Soap & Water Instructions: What Is High Blood Pressure? Additional Instructions: If you experience any of the following, contact your healthcare provider. * Bleeding that soaks a pad every hour for 2 hours * Fever 100.4 or higher * Unrelieved incision or abdominal pain * Swelling, redness, discharge or bleeding from your incision or episiotomy site * Your incision begins to separate * Problems urinating (including inability to urinate or burning while urinating) . * Visual changes * Severe headache * Flu-like symptoms * Pain or redness in one of both of your breasts * Pain, warmth, tenderness or swelling in your legs, especially the calf area * Frequent nausea and vomiting * Symptoms of depression or anxiety If you experience any of the following, call 911 or go to the nearest Emergency Room. * Chest pain * Problems breathing * Seizure activity * Partial or complete paralysis of a body part, slurred speech, weakness or drooping of the face, or a sudden inability to walk or hold your balance Please take your blood pressure at home every other day and record. Bring your blood pressure log with you to your next doctor's visit. Call the office with any blood pressures greater than or equal to 150/100 ( either number). Allergies/Adverse Reactions: Allergies ibuprofen [From Motrin] Allergy (Verified 09/08/17 08:11) Rash Medications to take at Discharge Vit No.130/Iron/FA [ Tablet] 1 each PO DAILY 09/08/17 Docusate Sodium [Colace] 100 mg PO BID PRN PRN #60 cap 09/11/17 Oxycodone [Oxyir] 1 - 2 tab PO Q4H PRN PRN 3 Days #28 tablet 09/11/17 The following prescriptions were given: Oxycodone [Oxyir] 1 - 2 tab PO Q4H PRN PRN 3 Days #28 tablet PRN Reason: Pain Docusate Sodium [Colace] 100 mg PO BID PRN PRN #60 cap PRN Reason: Constipation Follow-Up: Call to make an appointment with your doctor for an incision check in 1-2 weeks. You will also need a 6 week post- follow up appointment. Test results from this visit will be discussed in further detail at your follow- up appointment, if applicable. Please Follow Up With: Patricia Gray MD When: 7-10 days Primary Care Physician: Care Physician,No Primary [Primary Care Provider] -
[2017-09-11 09:15] LABS: Absolute Lymphocyte Count 1.94 X10^3/ul (0.83-4.51); Absolute Neutrophil Count 10.3 X10^3/uL (2.0-7.7); Basophil# 0.02 X10^3/uL; Basophil% 0.2 % (0-1); Eosinophil# 0.27 X10^3/uL; Eosinophils% 2.1 % (0-5); Hematocrit 32.5 % (37-47); Hemoglobin 10.7 g/dl (12.0-15.0); Lymphocyte # 1.94 X10^3/ul (4.0); Lymphocyte % 14.7 % (19-41); Mean Corp Hgb Conc 32.9 g/gl (32-36); Mean Corpuscular Hgb 29.9 pg (27.0-32.0); Mean Corpuscular Volume 90.8 fL (81-99); Mean Platelet Vol. 10.1 fl (6.2-12.0); Monocyte# 0.65 X10^3/uL; Monocyte% 4.9 % (0-10); Neutrophil # 10.27 X10^3/uL (2.7-7.7); Neutrophil % 77.9 % (47-70); Platelet Count 201 K/mm3 (150-450); RBC Distribution Width CV 14.8 % (11.6-14.6); Red Blood Count 3.58 M/mm3 (4.2-5.4); White Blood Count 13.2 K/mm3 (4.4-11.0)
[2017-09-11 09:16] LABS: POSITIVE COUNT NO; POSITIVE DIFFERENTIAL NO; POSITIVE MORPHOLOGY NO
[2017-09-11 09:44] LABS: ALB/GLOB Ratio 0.6 RATIO (0.9-2.4); AST(SGOT) 19 U/L (15-37); Alanine Aminotransfer ALT/SGPT 25 U/L (13-56); Albumin, Serum 2.5 g/dL (3.2-5.0); Alkaline Phosphatase 78 U/L (45-117); Anion Gap 9 (5-15); BUN 6 mg/dL (7-18); BUN/Creat Ratio 9.2 RATIO (10-20); Calcium,Total 8.2 mg/dL (8.5-10.1); Chloride 106 mmol/L (98-107); Creatinine, Serum 0.66 mg/dL (0.55-1.02); EST Glomerular Filtration Rate 120 mL/min (>60); Est Glom Filt Rate - Afr Amer 145 mL/min (>60); Estimated Creatinine Clearance 140.91 ml/min; Globulin 4.4 g/dL (2.2-4.2); Glucose 125 mg/dL (74-106); Potassium 3.5 mmol/L (3.5-5.1); Protein, Total 6.9 g/dL (6.4-8.2); Sodium Level 140 mmol/L (136-145); Uric Acid 3.5 mg/dL (2.6-6.0)
--- NOTE | 2017-09-11 11:05 | NURSING ---
Lab results called to , also discussed with her the pt's bp she states she didnt want to treat her for high bp unless she was 160/100. Plan is to dc pt to home with f/u appt with Marina the end of next wk.
[2017-09-11] MEDS: Prenatal Vits Tablet 1 TABLET PO (11:39)
[2017-09-11] MEDS: Acetaminophen 500 MG Tablet 1000 MG PO (11:39)
[2017-09-11 12:00] VITALS: BP 140/89; PULSE 84; RESP 16; TEMP 36.5
--- NOTE | 2017-09-17 09:17 | DS.PCM_ITS ---
Discharge Date and Diagnosis Date of Admission: 09/08/17 Date of Discharge: 09/11/17 Hospital Course and Treatment Operations: - - Cesaean section Summary of Care Provided: The patient is a 22 year old F 1 admitted at 37 5/7 weeks gestation for scheduled induction of labor for gestational hypertension. On admission however the fetus was found to be breech presentation. She initially declined section and underwent and external cephalic version with no sustained version. She subsequently had a low transverse section and subsequently experienced post- hemorrhage shortly after procedure. She was transfused 4U PRBC. Her blood pressures remained mildly elevated at time of discharge however she remained without signs or symptoms of preeclampsia and labs were normal. Discharge Diet: No Restrictions Discharge Activity: Return to Normal Activity, May Not Drive - for 2 weeks or while taking narcotic pain meds., May not drive while taking narcotic pain medications., May Shower May resume sexual activity in: 6 weeks Call your doctor if your incision/area has: Continuous Slow Oozing, Sudden Increased Bleeding, Increased Pain/ Swelling, Increased Redness, Foul Smelling Discharge Call your doctor if you observe: Fever of 101 or Higher, Using more than one pad per hour, Shortness of breath, Chest pain, Uncontrolled pain, - - Headaches , vision changes, severe abdominal pain Remove Dressing in (days):: 2 - on Saturday09/13/17 Cleanse incision/area with: Soap & Water Home Medications: Medications to take at Discharge Vit No.130/Iron/FA [ Tablet] 1 each PO DAILY 09/08/17 Docusate Sodium [Colace] 100 mg PO BID PRN PRN #60 cap 09/11/17 Oxycodone [Oxyir] 1 - 2 tab PO Q4H PRN PRN 3 Days #28 tablet 09/11/17 Following Prescrptions Were Given to Patient: Oxycodone [Oxyir] 1 - 2 tab PO Q4H PRN PRN 3 Days #28 tablet PRN Reason: Pain Docusate Sodium [Colace] 100 mg PO BID PRN PRN #60 cap PRN Reason: Constipation Primary Care Physician: Care Physician,No Primary [Primary Care Provider] - Please Follow Up With: Patricia Gray MD When: 7-10 days Patient Instructions: What Is High Blood Pressure? Medical Necessity - Tobacco Use Smoking Status: Never smoker Meaningful Use Info Meaningful Use Diagnoses (Choose all that apply): None applicable
== END 2017-09-11 14:40 | disposition home or self-care (01) | DRG 765 ==
PROVIDERS: Admitting Provider Obstetrics & Gynecology; Visit Provider Obstetrics & Gynecology
DX: O32.1XX0 Maternal care for breech presentation, not applicable or unspecified (principal); O72.1 Other immediate postpartum hemorrhage; Z37.0 Single live birth; O69.81X0 Labor and delivery complicated by cord around neck, without compression, not applicable or unspecified; O13.4 Gestational [pregnancy-induced] hypertension without significant proteinuria, complicating childbirth; Z3A.37 37 weeks gestation of pregnancy
CPT/HCPCS: 59025; 59050; 59412; 76815; 80053; 84550; 85025; 85027; 85384; 85610; 85730; 86644; 86850; 86900; 86920; 99218; J7030; J7120; P9016; P9040; A4216; G0378; J2405

== ENCOUNTER 2021-05-22 17:00 | Inpatient (IN) | payer BC, SELFPAY ==
[2021-05-22] VITALS (10 sets, daily range): BP systolic 122–155; BP diastolic 66–97; PULSE 78–99; RESP 12–18; TEMP 36.3–36.6; O2SAT 96–98; BMI 37.3
[2021-05-22] MEDS: Lactated Ringers 1,000 ML 999 ML IV (17:47)
[2021-05-22 18:06] LABS: Absolute Lymphocyte Count 1.68 X10^3/uL (0.83-4.51); Absolute Neutrophil Count 8.3 X10^3/uL (2.0-7.7); Basophil# 0.03 X10^3/uL; Basophil% 0.3 % (0-1); Eosinophil# 0.03 X10^3/uL; Eosinophils% 0.3 % (0-5); Hemoglobin 11.2 g/dL (12.0-15.0); Lymphocyte # 1.68 X10^3/ul (0.83-4.51); Lymphocyte % 15.7 % (19-41); Mean Corp Hgb Conc 33.9 g/dL (32-36); Mean Corpuscular Hgb 31.2 pg (27.0-32.0); Mean Corpuscular Volume 91.9 fL (81-99); Mean Platelet Vol. 10.8 fl (6.2-12.0); Monocyte# 0.65 X10^3/uL; Monocyte% 6.1 % (0-10); NRBC Flagged by Analyzer 0 % (0-5); Neutrophil # 8.27 X10^3/uL (2.7-7.7); Neutrophil % 77.1 % (47-70); Platelet Count 248 K/mm3 (150-450); RBC Distribution Width CV 12.9 % (11.6-14.6); RBC Distribution Width SD 42.9 fl (35.1-43.9); Red Blood Count 3.59 M/mm3 (4.2-5.4); White Blood Count 10.7 K/mm3 (4.4-11.0)
--- NOTE | 2021-05-22 18:14 | HP.PCM.OB_ITS ---
HPI - General General Date of Admission: 05/22/21 HPI Narrative NAE JIN, is a 25 F who presents from the office for a section. at 37w4d who came in for routine appointment and had mild range BP's. No pre e symptoms. Had mild range BP's at prior office visits. Given diagnosis of gHTN recommend delivery. H/o 1 prior section. Cvx unfavorable in the office. Maternal Data Information YOHAN Calculator Estimated Delivery Date Method Current WG Current Estimate 06/08/21 LMP (Certain) 37w 4d [facility] Medical History (Updated 05/22/21 @ 18:[address] Dawna Patel, DO) Patient denies medical problems Home Medications vit no.[id number] [ Vitamin] 1 ea PO DAILY 09/08/17 [History Last Taken Unknown] Aspir-81 81 mg PO/SL DAILY 05/22/21 [History Last Taken 05/15/21 08:00] Allergy/AdvReac Type Severity Reaction Status Date / Time ibuprofen [From Motrin] Allergy Mild Rash Verified 05/22/21 18:13 Social History Smoking Status: Never smoker History Elective abortions Hx Para 0 Spontaneous abortions Hx # Term Pregnancies Ectopic pregnancies Hx # Pregnancies Multiple births # of living children Vital Signs Vital Signs Vital Signs: Weight Weight: 252 lb 8 oz Body Mass Index (BMI) 37.3 Physical Exam Const alert and no apparent distress General Appearance: comfortable HEENT normocephalic GI soft to palpation Extremity normal to inspection Labs Labs Labs: Blood Type A POSITIVE Antibody Screen NEGATIVE Hct 33.0 % (37-47) L Hgb 11.2 g/dL (12.0-15.0) L [place] IgG Antibody 0.4 IU/mL Hep Bs Antigen Negative (Negative) Glucose 1 Hr 50 gm 81 mg/dL (70-140) Group B Strep DNA Negative (Negative) Rhogam given: No Assessment & Plan (1) 37 weeks gestation of : PLAN: Patient presented to the office with mild range BP's. Had mild range BP's at prior office visits. No pre e symptoms. Recommend delivery given gHTN. Pre e labs on admission. Counseled extensively regarding r/b of TOLAC vs repeat section. Unfavorable cervix. Patient desires repeat section. - Routine pre op care - Ancef pre op - GBS positive - Rapid covid - Pre e labs (2) Gestational hypertension: QUALIFIERS: Trimester: third trimester Qualified Code(s): O13.3 - Gestational [-induced] hypertension without significant proteinuria, third trimester (3) History of section: (4) Obesity affecting : (5) Excessive growth: (6) History of hemorrhage:
[2021-05-22] MEDS: Acetaminophen 500 MG Tablet 1000 MG PO (18:32)
[2021-05-22] MEDS: Sodium Citrate/Citric Acid 30 ML UDC PO (18:32)
[2021-05-22] MEDS: Lactated Ringers 1,000 ML 150 ML IV (18:46)
[2021-05-22] MEDS: Cefazolin 2 GM in 0.9% Normal Saline 100 ML IV (18:52)
--- NOTE | 2021-05-22 20:09 | OP.PCM_ITS ---
Problems Associated Problem List Diagnoses (1) Excessive growth: (2) Obesity affecting : (3) History of section: (4) delivery delivered: (5) 37 weeks gestation of : (6) Gestational hypertension: Report of Operation Date of Procedure: 05/22/21 Pre-Operative Diagnosis: 37 week gestation, gHTN, obesity, history of prior section Post-Operative Diagnosis: As above Surgery/Procedure Performed:: RLTCS via pfannenstiel incision Description of Surgical Findings:: Significant adhesive disease noted. Omentum completely adhered to peritoneum and rectus muscles in the midline. The omentum was also adhered to the anterior surface of the uterus in the midline, and along the left side of the uterus. The bladder was moderately adhered to the lower uterine segment. Discussed this with patient and if she does become again, would recommend having general surgery on standby. Normal adnexa bilaterally. Clear fluid. Normal appearing placenta. VFI in vertex presentation. Apgars 8,9. Surgeon: Jorge home restoration service cleaner: Kenisha Type of Anesthesia: Spinal Special Medications: None Specimen's removed: Placenta Drains: Diana Estimated Blood Loss (mL): 900 Fluids Replaced: 1200 Description of Procedure: Indications: H/o prior section with gHTN at 37 weeks, accelerated growth on ultrasound, and an unfavorable cervix. The patient was taken back to the operating room where spinal anesthesia was found to be adequate. She was prepped and draped in dorsal position with a lef tward tilt. A pfannenstiel skin incision was made with a scalpel and this was carried down to the underlying layer fascia. The fascia was incised in the midline. The fascial incision was extended laterally using Hoskins scissors. The fascia was densely adhered to the rectus. The fascia was dissected off the rectus muscles using sharp dissection. The rectus muscles were slightly in the midline and omentum was noted at this point of separation. The rectus muscles were bluntly. The peritoneum was entered bluntly, and significant omental adhesions were noted to the peritoneum. The incision was extended bluntly. The omental adhesions were dissected away from the uterus using Metzenbaum scissors. A low transverse incision was made on uterus with a scalpel. Membranes were ruptured for clear fluid. The head was flexed and brought to the hysterotomy. A vigorous viable female infant was delivered through the hysterotomy easily without any force or delay. The cord was clamped and cut after slight delay and the infant was handed off to waiting nursery staff. Placenta was removed manually. The uterus was unable to be exteriorized due to significant adhesive disease on the left side of the uterus. The hysterotomy was closed with Vicryl in a running locked fashion. Morgan was placed over the hysterotomy. The omentum was inspected and any free loops of om entum were dissected using Metzenbaum scissors. The omentum was cauterized with the Bovie for hemostasis. Good hemostasis was noted. Bilateral adnexa were palpated to be normal. The peritoneum was unable to be closed due to omental adhesions. The rectus muscles were made hemostatic with Bovie cautery. The fascia was closed with stratafix in a running fashion. Subcutaneous space was irrigated and made hemostatic with the Bovie cautery. Subcutaneous space was reapproximated using 3-0 Vicryl. Using 4-0 Monocryl the skin was closed with subcuticular fashion. Steri-Strips and dressing were placed. Instrument, sponge, needle counts were correct. The patient was taken to recovery in stable condition. Grafts/Implants Used: None Complications None Admit VTE Documentation VTE Present on Admission: No VTE Mechan Device Prophylaxis: SCD's
--- NOTE | 2021-05-22 20:25 | NURSING ---
NST obtained prior to . Category I tracing noted. See paper strip.
[2021-05-22] MEDS: Oxytocin 30 units/NS 500 ml 30 UNITS/500 ML IV.SOLN 167 UNITS IV (21:16)
[2021-05-22] MEDS: Ketorolac 30 MG/ML Syringe IV (21:38)
[2021-05-22] MEDS: Lactated Ringers 500 ML 999 ML IV (23:32)
[2021-05-23] VITALS (10 sets, daily range): BP systolic 111–137; BP diastolic 58–84; PULSE 78–100; RESP 16–20; TEMP 36.3–36.6; O2SAT 96–98
[2021-05-23] MEDS: Lactated Ringers 1,000 ML 100 ML IV (00:27)
[2021-05-23] MEDS: Acetaminophen 500 MG Tablet 1000 MG PO ×4 (01:26→18:52)
[2021-05-23] MEDS: Ketorolac 30 MG/ML Syringe IV ×3 (03:47→15:04)
[2021-05-23 05:16] LABS: Hematocrit 28.4 % (37-47); Hemoglobin 9.6 g/dL (12.0-15.0); Mean Corp Hgb Conc 33.8 g/dL (32-36); Mean Corpuscular Hgb 30.9 pg (27.0-32.0); Mean Corpuscular Volume 91.3 fL (81-99); Mean Platelet Vol. 10.3 fl (6.2-12.0); Platelet Count 193 K/mm3 (150-450); RBC Distribution Width SD 42.7 fl (35.1-43.9); Red Blood Count 3.11 M/mm3 (4.2-5.4); White Blood Count 10.5 K/mm3 (4.4-11.0)
[2021-05-23 05:33] LABS: ALB/GLOB Ratio 0.6 RATIO (0.9-2.4); AST(SGOT) 15 U/L (15-37); Alanine Aminotransfer ALT/SGPT 14 U/L (13-56); Albumin, Serum 2.1 g/dL (3.2-5.0); Alkaline Phosphatase 75 U/L (45-117); Anion Gap 5 (5-15); BUN 12 mg/dL (7-18); Calcium,Total 7.7 mg/dL (8.5-10.1); Chloride 106 mmol/L (98-107); Creatinine, Serum 0.63 mg/dL (0.55-1.02); EST Glomerular Filtration Rate 121 mL/min (>60); Est Glom Filt Rate - Afr Amer 147 mL/min (>60); Estimated Creatinine Clearance 142.66 ml/min; Globulin 3.4 g/dL (2.2-4.2); Glucose 90 mg/dL (74-106); Potassium 3.5 mmol/L (3.5-5.1); Protein, Total 5.5 g/dL (6.4-8.2); Sodium Level 135 mmol/L (136-145)
[2021-05-23] MEDS: Senna/Docusate Sodium 1 Tablet PO (09:20)
[2021-05-23] MEDS: Enoxaparin 40 MG/0.4 ML Syringe SC (09:20)
--- NOTE | 2021-05-23 09:21 | PN.OBGYN_ITS ---
Subjective Subjective Denies complaints Objective Data Objective Data Vital Signs: Vital Signs Temp Pulse Resp BP Pulse Ox 98 F 81 18 112/65 98 05/23/21 02:52 05/23/21 08:22 05/23/21 08:22 05/23/21 08:22 05/23/21 08:22 Oxygen Delivery Method Room Air Weight: 252 lb 8 oz Body Mass Index (BMI) 37.3 Intake & Output: Intake and Output for Last 24 Hours 05/21/21 05/22/21 05/23/21 23:59 23:59 23:59 Intake Total 1360 / 1360 2375.01 / 2375.01 Output Total 210 / 210 900 / 900 Balance 1150 / 1150 1475.01 / 1475.01 Lab / Micro Data Result Diagrams: 05/23/21 05:07 05/23/21 05:07 Labs: Laboratory Results - last 24 hr 05/22/21 17:47: WBC 10.7, RBC 3.59 L, Hgb 11.2 L, Hct 33.0 L, MCV 91.9, MCH 31.2, MCHC 33.9, RDW Std Deviation 42.9, RDW Coeff of Timothy 12.9, Plt Count 248, MPV 10.8, Immature Gran % (Auto) 0.500, Neut % (Auto) 77.1 H, Lymph % (Auto) 15.7 L, [place] % (Auto) 6.1, Eos % (Auto) 0.3, Baso % (Auto) 0.3, Absolute Neuts (auto) 8.3 H, Absolute Lymphs (auto) 1.68, Nucleated RBC % 0 05/22/21 17:47: Blood Type A POSITIVE, Antibody Screen NEGATIVE 05/23/21 05:07: WBC 10.5, RBC 3.11 L, Hgb 9.6 L, Hct 28.4 L, MCV 91.3, MCH 30.9, MCHC 33.8, RDW Std Deviation 42.7, RDW Coeff of Timothy 13.0, Plt Count 193, MPV 10.3 05/23/21 05:07: Sodium 135 L, Potassium 3.5, Chloride 106, Carbon Dioxide 24.0, Anion Gap 5, BUN 12, Creatinine 0.63, Estim Creat Clear Calc 142.66, Est GFR (MDRD) Af Amer 147, Est GFR (MDRD) Non-Af 121, BUN/Creatinine Ratio 19.0, Glucose 90, Calcium 7.7 L, Total Bilirubin 0.20, AST 15, ALT 14, Alkaline P hosphatase 75, Total Protein 5.5 L, Albumin 2.1 L, Globulin 3.4, Albumin/Globulin Ratio 0.6 L Micro: Microbiology 05/22/21 18:30 Nasal Secretion SARS-CoV-2 Antigen (Rapid) - Final Physical Exam Const alert, oriented x3 and no apparent distress HEENT normocephalic GI soft to palpation, non-tender and non-distended GI Narrative: fundus firm, mid & below umbilicus Incision - bandage c/d/i Extremity normal to inspection and no calf tenderness Assessment & Plan (1) Gestational hypertension: QUALIFIERS: Trimester: third trimester Qualified Code(s): O13.3 - Gestational [-induced] hypertension without significant proteinuria, third trimester PLAN: BP's normal to mildly elevated since delivery No preE symptoms Will monitor (2) S/P section: COMMENT: POD#1 PLAN: Heme - mild anemia from GI - ADAT ID - AF, no signs infection Routine PP care
[2021-05-23] MEDS: Ferrous Sulfate 325 MG Tablet PO (12:48)
[2021-05-23] MEDS: 0.9% Saline Lock 10 ML Syringe IV (15:05)
[2021-05-23] MEDS: Naproxen 500 MG Tablet PO (23:17)
[2021-05-24] MEDS: Acetaminophen 500 MG Tablet 1000 MG PO ×2 (02:06→08:18)
[2021-05-24 02:08] VITALS: BP 119/76; PULSE 85; RESP 18; TEMP 36.2; O2SAT 95
[2021-05-24] MEDS: Naproxen 500 MG Tablet PO (06:20)
[2021-05-24 08:15] VITALS: BP 140/83; PULSE 79; RESP 16; TEMP 36.3; O2SAT 95
--- NOTE | 2021-05-24 08:40 | PCM.PROGNOTE ---
Subjective Subjective patient seen at bedside, doing well. Patient reports good pain control. lochia mild. denies [place], visual changes or Epigastric pain. Breast feeding. Objective Data Objective Data Vital Signs: Vital Signs Temp Pulse Resp BP Pulse Ox 97.3 F L 79 16 140/83 H 95 05/24/21 08:15 05/24/21 08:15 05/24/21 08:15 05/24/21 08:15 05/24/21 08:15 Oxygen Delivery Method Room Air Weight: 114.532 kg Body Mass Index (BMI) 37.3 Intake & Output: Intake and Output for Last 24 Hours 05/22/21 05/23/21 05/24/21 23:59 23:59 23:59 Intake Total 1360 / 1360 2375.01 / 2375.01 Output Total 210 / 210 1600 / 1600 Balance 1150 / 1150 775.01 / 775.01 Lab / Micro Data Result Diagrams: 05/23/21 05:07 05/23/21 05:07 Micro: Microbiology 05/22/21 18:30 Nasal Secretion SARS-CoV-2 Antigen (Rapid) - Final Physical Exam Const alert and oriented x3 General Appearance: cooperative HEENT normocephalic Neck General: normal visual inspection GI soft to palpation and non-distended GI Narrative: dressing dry and intact. Fundus firm Extremity normal to inspection and no calf tenderness Skin no rashes or lesions noted Neuro oriented x3 and CN's II-XII intact bilaterally Psych mental status grossly normal Assessment & Plan Assessment/Plan (1) Gestational hypertension: QUALIFIERS: Trimester: third trimester Qualified Code(s): O13.3 - Gestational [-induced] hypertension without significant proteinuria, third trimester (2) S/P section: PLAN: POD# 2 , Doing well Routine care pain mgmt monitor VS ambulation will need BP check in office within one week Pt instructed on S/Sx of PP PRE E.
--- NOTE | 2021-05-24 08:42 | PCM.DC ---
Discharge Instructions Diet Discharge Diet: No restrictions Activity May resume sexual activity in: 6-8 weeks Lifting Restrictions: 25 Dressing / Incision Call your doctor if your incision/area has: Continuous Slow Oozing, Sudden Increased Bleeding, Increased Pain/ Swelling, Increased Redness, Foul Smelling Discharge and Swelling at the incision site Call your doctor if you observe: Fever of 101 or Higher, Inability to urinate, Using more than 1 pad per hour and Uncontrolled pain Additional Dressing/Incision Instructions:: remove dressing at 7 days post op- if it becomes saturated prior to that time you may remove it. Let soap and water run over incision sites and dab dry. keep incision clean and dry. Follow Up Care Please Follow Up With: Johana Diaz MD When: 1-2 weeks post of incision check and again at 6 weeks post . [phone] Test Results: Test results from this visit will be discussed in further detail at your follow-up appointment, if applicable. Discharge Plan Admission Admit Date/Time: 05/22/21 17:00 Attending Provider: Dawna Patel Primary Care Provider: Care Physician,Lenora Primary Discharge Orders/Prescriptions Prescriptions: New acetaminophen 500 mg Tablet 1,000 mg PO Q6H Qty: 0 RF: 0 ferrous sulfate [FeroSul] 325 mg (65 mg iron) Tablet 325 mg PO DAILY@1200 Qty: 0 RF: 0 naproxen 500 mg Tablet 500 mg PO Q8H Qty: 0 RF: 0 simethicone [Mi-Acid Gas Relief(simethicon)] 80 mg Tablet,Chewable 80 mg PO PCHS PRN (Reason: Indigestion/stomach pain) Qty: 0 RF: 0 Continued Vitamin 1 EACH tablet 1 ea PO DAILY RF: 0 Discontinued Aspir-81 81 mg PO/SL DAILY RF: 0 Referrals / Follow Up: Care Physician,No Primary [Primary Care Provider] - Disposition Disposition (needs filled in before D/C Order can be placed): Home, Self Care
--- NOTE | 2021-05-24 08:43 | PCM.DC.BLA ---
Discharge Summary Date of Admission: 05/22/21 Date of Discharge: 05/24/21 Summary: Patient mended to [facility] 05/22/2021 for gestational hypertension 37+ weeks gestation. Patient underwent a repeat low transverse section without complication. She was discharged home on postoperative day #2 in stable condition. Meaningful Use Info Meaningful Use Diagnoses (Choose all that apply): None applicable Discharge Plan Admission Admit Date/Time: 05/22/21 17:00 Attending Provider: Dawna Patel Primary Care Provider: Care Physician,No Primary Discharge Orders/Prescriptions Prescriptions: New acetaminophen 500 mg Tablet 1,000 mg PO Q6H Qty: 0 RF: 0 ferrous sulfate [FeroSul] 325 mg (65 mg iron) Tablet 325 mg PO DAILY@1200 Qty: 0 RF: 0 naproxen 500 mg Tablet 500 mg PO Q8H Qty: 0 RF: 0 simethicone [Mi-Acid Gas Relief(simethicon)] 80 mg Tablet,Chewable 80 mg PO PCHS PRN (Reason: Indigestion/stomach pain) Qty: 0 RF: 0 Continued Vitamin 1 EACH tablet 1 ea PO DAILY RF: 0 Discontinued Aspir-81 81 mg PO/SL DAILY RF: 0 Referrals / Follow Up: Care Physician,No Primary [Primary Care Provider] - Disposition Disposition (needs filled in before D/C Order can be placed): Home, Self Care
[2021-05-24] MEDS: Ferrous Sulfate 325 MG Tablet PO (10:06)
[2021-05-24] MEDS: Enoxaparin 40 MG/0.4 ML Syringe SC (10:06)
[2021-05-24] MEDS: Senna/Docusate Sodium 1 Tablet PO (10:06)
[2021-05-24 10:56] VITALS: BP 146/94
[2021-05-24 11:59] VITALS: BP 137/87; BP 143/88; PULSE 85
== END 2021-05-24 12:25 | disposition home or self-care (01) | DRG 788 ==
PROVIDERS: Admitting Provider Obstetrics & Gynecology; Visit Provider Obstetrics & Gynecology
DX: O13.4 Gestational [pregnancy-induced] hypertension without significant proteinuria, complicating childbirth (principal); E66.9 Obesity, unspecified; O99.214 Obesity complicating childbirth; O34.211 Maternal care for low transverse scar from previous cesarean delivery; O99.824 Streptococcus B carrier state complicating childbirth; Z3A.37 37 weeks gestation of pregnancy; Z37.0 Single live birth; O36.63X0 Maternal care for excessive fetal growth, third trimester, not applicable or unspecified; Z87.59 Personal history of other complications of pregnancy, childbirth and the puerperium; Z98.891 History of uterine scar from previous surgery
CPT/HCPCS: 59050; 80053; 85025; 85027; 86850; 86900; 86901; 87426; 99218; J7120; A4216; G0378; J2405